=== PATIENT | male | born 1990 | race African-American/Black ===

== ENCOUNTER 2016-06-22 18:51 | Emergency (ER) | payer MEDICAID ==
[2016-06-22 19:02] VITALS: BP 119/64
--- OUTSIDE RECORDS SUMMARY | 2016-06-22 19:17 | XMS REPORT | Continuity of Care Document ---
:1990 Author Organization [employer] [place] [address] Care Team Providers Name Role Phone Provider, None Per Patient Primary Care Provider Unavailable Source Comments This disclosure is being made pursuant to the [employer] program and maynot contain all information available regarding this patient.[employer] Active Allergies and Adverse Reactions Allergen Noted Date Severity Reactions Comments Penicillins 11/20/2011 Other (See Comments) Unknown per pt Current Medications Be aware that medications may not be up to date as of this document. Alwaysverify current medications with the patient. Prescription Sig. Disp. Refills Start Date End Date Status traMADol (ULTRAM) 50 MG Take 1 tablet by 15 tablet 0 11/20/2011 Active tablet mouth every 6 (six) hours as needed for Pain. guaiFENesin-codeine Take 5 mLs by 120 mL 0 07/03/2012 Active (GUAIFENESIN AC) 100-10 mouth 4 (four) MG/5ML liquid times daily as needed for Cough. ciprofloxacin (CILOXAN) Place 1 drop 5 mL 0 07/03/2012 Active 0.3 % ophthalmic into both eyes solution every 6 (six) hours. Active Problems Not on file Social History Tobacco Use Types Packs/Day Years Used Date Current Every Day Smoker 0.5 Alcohol Use Drinks/Week oz/Week Comments Yes 12 Cans of beer 7.2 Last Filed Vital Signs Vital Sign Reading Time Taken Blood Pressure 126/73 07/03/2012 7:49 PM CDT Pulse 79 07/03/2012 7:49 PM CDT Temperature 37.2 C (99 F) 07/03/2012 7:49 PM CDT Respiratory Rate 16 07/03/2012 7:49 PM CDT Height 1.803 m (5' 11") 05/14/2011 3:24 PM [employer]AND SUR[employer] Weight 74.844 kg (165 lb) 07/03/2012 5:10 PM CDT Body Mass Index 23.02 07/03/2012 5:10 PM CDT Oxygen Saturation 97% 07/03/2012 7:49 PM CDT Plan of Care Health Maintenance Due Date Last Done Comments HPV Vaccine ([id number]) (1 of 3 - Male 3 Dose Series) 07/10/2002 Retired-Tetanus Vaccine Adult 07/10/2010 Retired-INFLUENZA VACCINE 11/04/2014 Results from Last 3 Months Not on file
[2016-06-22] MEDS ORDERED: METOCLOPRAMIDE HCL 5 MG/ML VIAL IV ONE (19:20)
[2016-06-22] MEDS ORDERED: diphenhydrAMINE HCL 50 MG/ML VIAL IV ONE (19:20)
[2016-06-22] MEDS ORDERED: FAMOTIDINE 10 MG/ML VIAL IV ONE ×2 (19:20→19:57)
[2016-06-22] MEDS ORDERED: KETOROLAC TROMETHAMINE 30 MG/ML VIAL IV ONE (19:20)
[2016-06-22] MEDS ORDERED: METOCLOPRAMIDE HCL 5 MG/ML VIAL ONE (19:29)
[2016-06-22] MEDS ORDERED: diphenhydrAMINE HCL 50 MG/ML VIAL ONE (19:29)
[2016-06-22] MEDS ORDERED: KETOROLAC TROMETHAMINE 30 MG/ML VIAL ONE (19:29)
--- NOTE | 2016-06-22 19:43 | ERNOTE ---
<DottieCosme porter - Last Filed: 06/22/16 19:57> Headache ER HPI - Narrative Date of Service: 06/22/16 - General Presenting Symptoms: headache Time Seen by Provider: 06/22/16 19:06 Source: patient, family Exam Limitations: no limitations - Immun/Allergies/Home Medications Immunizations: IMMUNIZATION HX Immunizations Up to Date Yes History of Influenza Vaccine No Hx Pneumococcal Vaccination No Allergies/Adverse Reactions: Allergies Penicillins Allergy (Verified 03/04/16 01:04) Home Medications: HOME MEDICATIONS Clonazepam 1 mg PO DAILY PRN 06/22/16 [Last Taken Unknown] - Pain Pain Score: 9 - History of Present Illness Narrative: Patient comes due to a L sided headache. The pain is sharp, constant and has no radiation. Patient with no double vision, no LOC, and no loss of vision. Headache is like previous one. No Hx of Tx reported by patient at the moment. Timing of Headache: gradual, still present Context Headache: Absent: CO exposure, tick bite, insect bite, sick contact, meningitis exposure, recent head injury < 24 hrs ago, recent head injury > 24 hrs, recent travel-outside [place] Quality: Present: achy, pressure, sharp Severity Maximum: Present: severe Severity-Currently: Present: severe Headache frequency: Present: similar to previous headache Modifying Factors - (Improves): Reports: other - Dark Room Modifying Factors - (Worsens): Reports: exposure to light Associated Symptoms: Reports: light-headedness - meaning blurred vision. Denies : fever/chills, vomiting, sweating, nasal congestion, facial pain, weakness, numbness/tingling, vision changes, confusion, dizziness, loss of consciousness, seizures, neck pain/stiffness, speech problems Prior Treament: Denies: recently seen Review of Systems - Review of Systems Constitutional: Absent: fever, chills, diaphoresis, weakness, malaise EYE: Present: no symptoms reported ENT: Present: no symptoms reported Respiratory: Absent: shortness of breath, cough, orthopnea, wheezing Cardiology: Present: no symptoms reported Gastrointestinal/Abdominal: Present: no symptoms reported Genitourinary: Present: no symptoms reported Musculoskeletal: Present: no symptoms reported Skin: Present: no symptoms reported Neurological: Present: dizziness/light-headedness. Absent: anxiety, depressed, headache, seizure, weakness, numbness, tingling, tremors, pre-existing deficit Endocrine: Present: no symptoms reported Hematologic/Lymphatic: Present: no symptoms reported Psych: Present: no symptoms reported All Other Systems: All systems neg except as marked - Patient's Past Medical History Patient History - Medical: Anxiety, Headache Patient History - Cardiac/Respiratory: No pertinent hx Patient History - Cancer: No Hx of Cancer Patient History - Surgical Procedures: No surgical history, Other Patient History - Other: None - Family History Mother Family History - Medical: Migraines - Social History Living Situations: parents Abuse History: No History of abuse Psych History: Hx of Anxiety Smoking Status: Current every day smoker Alcohol Use: occasionally Drug Use: marijuana - Immunizations Immunizations Up to Date: Yes Hx Pneumococcal Vaccination: No History of Influenza Vaccine: No Physical Exam - Physical Exam General Appearance: Present: wd/wn, alert, no apparent distress Eye Exam: Normal inspection: bilateral, PERRL: bilateral, EOMI: bilateral, Photophobia: bilateral Ears, Nose, Throat: Present: normal ENT inspection, normal pharynx Neck: Present: normal inspection, nontender, supple Respiratory: Present: no respiratory distress, normal breath sounds, no accessory muscle use, chest nontender, lungs clear Cardiovascular/Chest: Present: regular rate, rhythm, no murmur, normal peripheral pulses Gastrointestinal/Abdominal: Present: normal bowel sounds, nontender, nondistended, soft, no organomegaly Back Exam: Present: normal inspection, normal range of motion, no CVA tenderness , no vertebral tenderness Extremity Exam: Present: normal inspection, non-tender, normal range of motion, no edema Neurological Exam: Present: alert, oriented, normal mood/affect, no motor/ sensory deficits, 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 Absent: facial droop, motor weakness, disoriented to person, disoriented to time, disoriented to place, disoriented to situation Skin Exam: Present: normal color, warm/dry Lymphatic Exam: Present: no adenopathy ED Progress - Date and Time Seen: Date and Time: 06/22/16 19:38 Patient with Hx of headache and no follow up. Patient at the moment has no gross neurologic deficits. Patient with a FMS, GCS: 15/15 and NIH Stroke Scale: 0. - Vital Signs Patient's Vital Signs:: I have reviewed the patient's vital signs. Vital Signs: Vital Signs 06/22/16 18:56 Temperature 37.0 C Pulse Rate 52 L Respiratory 14 Rate Blood Pressure 119/64 O2 Sat by Pulse 98 Oximetry - Progress/Reassessment Chief Complaint: Headache Progress:: Unchanged - Transfer of Care Physician Sign Out: Cosme Dawkins Brief History: Patient comes due to headache. At the moment patient has been given Tx. Patient will need follow and re-evaluation. Receiving Physician: Danilo Venegas Plan - Plan Plan: Patient has been given Tx and is waiting for re-evaluation. Departure Clinical Impression: Headache Qualifiers: Headache type: unspecified Headache chronicity pattern: unspecified pattern Intractability: not intractable Qualified Code(s): R51 - Headache - Departure Disposition: Home self-care Condition: Good Instructions: Migraine Headache, [id number] Referrals: Davis Reece MD [Primary Care Provider] - <Danilo Venegas - Last Filed: 06/22/16 21:08> Headache ER HPI - Immun/Allergies/Home Medications Immunizations: IMMUNIZATION HX Immunizations Up to Date Yes History of Influenza Vaccine No Hx Pneumococcal Vaccination No ED Progress - Vital Signs Vital Signs: Vital Signs 06/22/16 18:56 Temperature 37.0 C Pulse Rate 52 L Respiratory 14 Rate Blood Pressure 119/64 O2 Sat by Pulse 98 Oximetry - Progress/Reassessment Progress:: Improved Progress Note-Subjective: 06/22/16 20:25 Pt sleeping on my entrance to the room. Pt reported pain less than 5. No Neuro deficits.
== END 2016-06-22 20:35 | disposition home or self-care (01) ==
LOC: ER 18:51
DX: R51 Headache (principal); F17.210 Nicotine dependence, cigarettes, uncomplicated; F41.9 Anxiety disorder, unspecified

== ENCOUNTER 2016-07-30 16:43 | Emergency (ER) | payer MEDICAID ==
[2016-07-30 16:43] VITALS: BP 119/64
--- OUTSIDE RECORDS SUMMARY | 2016-07-30 18:22 | XMS REPORT | Continuity of Care Document ---
:1990 Author Organization [employer] [place] [address] Care Team Providers Name Role Phone Provider, None Per Patient Primary Care Provider Unavailable Source Comments This disclosure is being made pursuant to the [employer] program and maynot contain all information available regarding this patient.[employer] Active Allergies and Adverse Reactions Allergen Noted [...] 1.803 m (5' 11") 05/14/2011 3:24 PM NURSE PRACTITIONER PER DIEM Weight 74.844 kg (165 lb) 07/03/2012 5:10 [...]
== END 2016-07-30 16:50 | disposition left against medical advice (07) ==
LOC: ER 16:43
DX: Z53.21 Procedure and treatment not carried out due to patient leaving prior to being seen by health care provider (principal)

== ENCOUNTER 2017-01-16 15:47 | Emergency (ER) | payer MEDICAID ==
[2017-01-16 16:03] VITALS: BP 153/66
== END 2017-01-16 17:00 | disposition left against medical advice (07) ==
LOC: ER 15:47
DX: Z53.21 Procedure and treatment not carried out due to patient leaving prior to being seen by health care provider (principal)